=== PATIENT | female | born 1955 | race American Indian/Alaskan Native ===

== ENCOUNTER 2017-09-10 06:09 | Emergency (ER) | payer SELFPAY ==
[2017-09-10] MEDS ORDERED: AUGMENTIN 875 MG PO ONE (11:16)
[2017-09-10] MEDS ORDERED: DELTASONE PO ONE (11:16)
--- NOTE | 2017-09-10 11:17 | Emergency Department Report ---
HPI - General Chief Complaint: Earache Time Seen by Provider: 09/10/17 09:10 - HPI HPI: This is a 61-year-old female in no higher medical history who presents to ED complaining of runny nose, coughing, sneezing, throat pain and ear pain for the past 3 weeks. Patient states she's felt like she is on a cold for 3 weeks. Patient states she went to [facility] 5 days ago and was not given any medication to follow-up if symptoms worsen. Patient states symptoms have not gone away and gotten a bit worse. Patient describes soreness to the left ear and neck region. She describes it as throbbing and aching pain. She denies fever/chills/nausea/vomiting/abdominal complaints this chest pain/ shortness of breath. ED Past Medical Hx - Past Medical History Previous Medical History?: Yes Hx Hypertension: Yes Additional medical history: Hypothryoid, MVP - Surgical History Past Surgical History?: Yes Additional Surgical History: Hysterectomy - Social History Smoking Status: Never Smoker Substance Use Type: None - Medications Home Medications: Home Medications Medication Instructions Recorded Confirmed Last Taken Type Diazepam Tab [Valium] 2 mg PO TID PRN #30 tablet 09/28/15 Unknown Rx Oxycodone HCl/Acetaminophen 1 each PO Q6HR PRN #30 tablet 09/28/15 Unknown Rx [Percocet 10/325 mg] Amoxicillin [Trimox CAP] 500 mg PO Q8H #30 capsule 12/15/15 Unknown Rx Fluconazole [Diflucan TAB] 150 mg PO ONCE #1 tablet 12/15/15 Unknown Rx Fluticasone [Flonase] 1 spray NS QDAY #1 bottle 12/15/15 Unknown Rx Prednisone [predniSONE 5 mg (6-Day 5 mg PO .TAPER #1 tab.ds.pk 12/15/15 Unknown Rx Pack, 21 Tabs)] Diazepam Tab [Valium] 5 mg PO BID PRN #8 tablet 09/30/16 Unknown Rx Amoxicillin/K Clav Tab [Augmentin 1 each PO BID #20 tablet 09/10/17 Unknown Rx 875MG TAB] Ibuprofen [Motrin 600 MG tab] 600 mg PO Q8H PRN #20 tablet 09/10/17 Unknown Rx predniSONE [Deltasone] 20 mg PO DAILY #3 tablet 09/10/17 Unknown Rx ED Review of Systems ROS: Stated complaint: FLU SYPMTOMS Other details as noted in HPI Constitutional: denies: chills, fever Eyes: denies: eye pain, eye discharge, vision change ENT: throat pain. denies: ear pain, dental pain, congestion Respiratory: cough. denies: shortness of breath, wheezing Cardiovascular: denies: chest pain, palpitations Endocrine: no symptoms reported Gastrointestinal: denies: abdominal pain, nausea, diarrhea Genitourinary: denies: urgency, dysuria, frequency, hematuria, discharge Musculoskeletal: denies: back pain, joint swelling, arthralgia Skin: denies: rash, lesions, pruritus Neurological: denies: headache, weakness, numbness, paresthesias Psychiatric: denies: anxiety, depression Hematological/Lymphatic: denies: easy bleeding, easy bruising Physical Exam - Physical Exam Vital Signs: Vital Signs 09/10/17 07:14 Temperature 97.7 F Pulse Rate 65 Blood Pressure 135/92 O2 Sat by Pulse 65 L Oximetry Physical Exam: GENERAL: Alert and oriented x3, no apparent distress, Normal Gait, atraumatic. HEAD: Head is normocephalic and a-traumatic. EYES: Extra ocular muscles are intact. Pupils are equal, round, and reactive to light and accommodation. EARS: symetrical, atraumatic, non tender, ear canal clear and moderate cerumen, tympanic membrance non inflamed but had some yellowish fluid behind tympanic membranes bilaterally. gross auditory nml bilaterally. NOSE: Nose symetrical, Nontender,Nares appeared normal. maxillary sinus tenderness MOUTH:Mouth is well hydrated and without lesions. Tonsils nonerythematous or swollen, Uvula midline, Tongue not elevated. Mucous membranes are moist. Posterior pharynx clear, no exudate or lesions. Patent airways. NECK: Supple. Non edematous, There is anterior cervical lymphadenopathy, LUNGS: Symetrical with respiration, No wheezing, no rales or crackles, CTAB. HEART: S1, S2 present, regular rate and rhythm without murmur, no rubs, no gallops. Non tender to palpation SKIN: Warm and dry, No lesions, No ulceration or induration present. ED Course Vital Signs 09/10/17 07:14 Temperature 97.7 F Pulse Rate 65 Blood Pressure 135/92 O2 Sat by Pulse 65 L Oximetry ED Medical Decision Making - Radiology Data 61-year-old female present with URI with sinusitis ED course: Patient received medication while in ED. Rapid strep test ordered, abruptly strep negative I discussed this findings with the patient. I discussed the patient take antibiotics as prescribed. I discussed the patient to follow up with primary care physician in 3-5 days. Vital signs normalized patient is in no acute distress I discussed the patient is symptoms worsen or new symptoms develop to return to ED immediately. Critical care attestation.: If time is entered above; I have spent that time in minutes in the direct care of this critically ill patient, excluding procedure time. ED Disposition Clinical Impression: Sinusitis Qualifiers: Sinusitis location: maxillary Chronicity: acute Recurrence: non-recurrent Qualified Code(s): J01.00 - Acute maxillary sinusitis, unspecified Disposition: TO HOME OR SELFCARE Is pt being admited?: No Does the pt Need Aspirin: No Condition: Stable Instructions: Sinusitis (ED), Acute Bacterial Rhinosinusitis (ED) Additional Instructions: Make sure to follow up with the primary care physician as discussed. Take all your medications as you've been prescribed. If you have any worsening symptoms or develop new symptoms please return to ED immediately. Prescriptions: Amoxicillin/K Clav Tab [Augmentin 875MG TAB] 1 each PO BID #20 tablet Ibuprofen [Motrin 600 MG tab] 600 mg PO Q8H PRN #20 tablet PRN Reason: Pain predniSONE [Deltasone] 20 mg PO DAILY #3 tablet Referrals: PRIMARY CARE, [Primary Care Provider] - 3-5 Days [facility] [Outside] - 3-5 Days [facility] [Outside] - 3-5 Days [facility] [Outside] - 3-5 Days Forms: Work/School Release Form(ED) Time of Disposition: 12:26
[2017-09-10 12:46] VITALS: BP 166/118
== END 2017-09-10 12:43 | disposition home or self-care (01) ==
LOC: ED 06:09
DX: J32.0 Chronic maxillary sinusitis (principal); I10 Essential (primary) hypertension; E03.9 Hypothyroidism, unspecified
CPT/HCPCS: 87116; 87430; 99282; J7512

== ENCOUNTER 2021-03-13 13:56 | Outpatient (CLI) | payer MEDICARE ==
--- NOTE | 2021-03-13 18:26 | Magnetic Resonance Report ---
MR lumbar spine wo con INDICATION / CLINICAL INFORMATION: 65 years Female; LOW BACK PAIN. TECHNIQUE: Multisequence, multiplanar images of the lumbar spine were obtained. COMPARISON: None available. FINDINGS: ALIGNMENT: There is no significant spondylolisthesis or scoliosis of the lumbar spine. VERTEBRAE:There is mild degenerative endplate edema on the left at L4-5. Mild chronic endplate change s are noted at L5-S1. VISUALIZED SPINAL CORD: No significant abnormality. [id number] ANALYSIS: L1-2: No significant abnormality. L2-3: No significant abnormality. L3-4: No significant abnormality. L4-5: The broad-based disc bulge and facet joint hypertrophy result in mild spinal stenosis. There is small left facet joint effusion. There is mild neural foraminal narrowing bilaterally. L5-S1: There is milder central disc bulge with small annular tear. There is no significant central sp inal stenosis at. There is mild neural foraminal narrowing bilaterally. PARASPINAL SOFT TISSUES: No significant abnormality. ADDITIONAL FINDINGS: No epidural collections are identified. IMPRESSION: 1. There is mild spinal stenosis and neural from narrowing bilaterally at L4-5. 2. There is also disc bulge and facet joint changes at L5-S1 with mild foraminal narrowing bilaterall y. Signer Name: Lennox Albrecht MD Signed: 03/13/2021 6:21 PM Workstation Name: [id number]
== END 2021-03-13 13:57 | disposition home or self-care (01) ==
LOC: MRI 13:56
PROVIDERS: ATTEND Orthopaedic Surgery
DX: M47.817 Spondylosis without myelopathy or radiculopathy, lumbosacral region (principal); M48.07 Spinal stenosis, lumbosacral region
CPT/HCPCS: 72148

== ENCOUNTER 2021-04-14 14:39 | Emergency (ER) | payer MEDICARE ==
[2021-04-14 16:33] VITALS: BP 145/96
--- NOTE | 2021-04-14 19:12 | Emergency Department Report ---
ED ENT HPI - General Chief complaint: Earache Stated complaint: RT EAR PAIN Time Seen by Provider: 04/14/21 18:20 Source: patient Mode of arrival: Ambulatory Limitations: No Limitations - History of Present Illness Initial comments: This is a 65-year-old female brought by mother nontoxic, well nourished in appearance, no acute signs of distress presents to the ED with c/o of right earache x several days. Patient stated that pain radiates to right sided throat area. Patient denies any ear drainage. Patient denies any trauma to the area. Patient denies any mastoid tenderness. Agrees to right tragus tenderness. Patient denies hearing decrease or hearing changes. Patient denies any fever, chills, nausea, vomiting, chest pain, short of breath, headache or stiff neck. MD complaint: ear pain -: days(s) Location: R ear Severity: mild Severity scale (0 -10): 3 Quality: aching Consistency: constant Improves with: none Worsens with: none Associated Symptoms: denies: fever, cough, gum swelling, toothache, pain with swallowing, sore throat, tinnitus, hearing loss, discharge from ear, rhinorrhea - Related Data Previous Rx's Medication Instructions Recorded Last Taken Type Oxycodone HCl/Acetaminophen 1 each PO Q6HR PRN #30 tablet 09/28/15 Unknown Rx [Percocet 10/325 mg] diazePAM TAB [Valium] 2 mg PO TID PRN #30 tablet 09/28/15 Unknown Rx Amoxicillin [Trimox CAP] 500 mg PO Q8H #30 capsule 12/15/15 Unknown Rx Fluconazole (Nf) [Diflucan TAB] 150 mg PO ONCE #1 tablet 12/15/15 Unknown Rx Fluticasone [Flonase] 1 spray NS QDAY #1 bottle 12/15/15 Unknown Rx Prednisone [predniSONE 5 mg (6-Day 5 mg PO .TAPER #1 tab.ds.pk 12/15/15 Unknown Rx Pack, 21 Tabs)] diazePAM TAB [Valium] 5 mg PO BID PRN #8 tablet 09/30/16 Unknown Rx Amoxicillin/K Clav Tab [Augmentin 1 each PO BID #20 tablet 09/10/17 Unknown Rx 875MG TAB] Ibuprofen [Motrin 600 MG tab] 600 mg PO Q8H PRN #20 tablet 09/10/17 Unknown Rx predniSONE [Deltasone] 20 mg PO DAILY #3 tablet 09/10/17 Unknown Rx Amoxicillin [Amoxicillin TAB] 875 mg PO BID #20 tablet 04/14/21 Unknown Rx Ciprofloxacin HCl/Dexameth 2 drop BID 7 Days #1 bottle 04/14/21 Unknown Rx [Ciprodex Otic Suspension] Allergies Allergy/AdvReac Type Severity Reaction Status Date / Time erythromycin base Allergy Itching Verified 09/10/17 07:13 hydroxyzine HCl [From Atarax] Allergy Rash Verified 09/10/17 07:13 latex Allergy Hives Verified 09/10/17 07:13 oxytocin [From Pitocin] Allergy Rash Verified 09/10/17 07:13 Sulfa (Sulfonamide Allergy Rash Verified 09/10/17 07:13 Antibiotics) pseudoephedrine AdvReac Unknown Verified 09/10/17 07:13 Nickel Allergy Rash Uncoded 09/30/16 09:39 ED Dental HPI - General Chief complaint: Earache Stated complaint: RT EAR PAIN Time Seen by Provider: 04/14/21 18:20 Source: patient Mode of arrival: Ambulatory Limitations: No Limitations - Related Data Previous Rx's Medication Instructions Recorded Last Taken Type Oxycodone HCl/Acetaminophen 1 each PO Q6HR PRN #30 tablet 09/28/15 Unknown Rx [Percocet 10/325 mg] diazePAM TAB [Valium] 2 mg PO TID PRN #30 tablet 09/28/15 Unknown Rx Amoxicillin [Trimox CAP] 500 mg PO Q8H #30 capsule 12/15/15 Unknown Rx Fluconazole (Nf) [Diflucan TAB] 150 mg PO ONCE #1 tablet 12/15/15 Unknown Rx Fluticasone [Flonase] 1 spray NS QDAY #1 bottle 12/15/15 Unknown Rx Prednisone [predniSONE 5 mg (6-Day 5 mg PO .TAPER #1 tab.ds.pk 12/15/15 Unknown Rx Pack, 21 Tabs)] diazePAM TAB [Valium] 5 mg PO BID PRN #8 tablet 09/30/16 Unknown Rx Amoxicillin/K Clav Tab [Augmentin 1 each PO BID #20 tablet 09/10/17 Unknown Rx 875MG TAB] Ibuprofen [Motrin 600 MG tab] 600 mg PO Q8H PRN #20 tablet 09/10/17 Unknown Rx predniSONE [Deltasone] 20 mg PO DAILY #3 tablet 09/10/17 Unknown Rx Amoxicillin [Amoxicillin TAB] 875 mg PO BID #20 tablet 04/14/21 Unknown Rx Ciprofloxacin HCl/Dexameth 2 drop BID 7 Days #1 bottle 04/14/21 Unknown Rx [Ciprodex Otic Suspension] Allergies Allergy/AdvReac Type Severity Reaction Status Date / Time erythromycin base Allergy Itching Verified 09/10/17 07:13 hydroxyzine HCl [From Atarax] Allergy Rash Verified 09/10/17 07:13 latex Allergy Hives Verified 09/10/17 07:13 oxytocin [From Pitocin] Allergy Rash Verified 09/10/17 07:13 Sulfa (Sulfonamide Allergy Rash Verified 09/10/17 07:13 Antibiotics) pseudoephedrine AdvReac Unknown Verified 09/10/17 07:13 Nickel Allergy Rash Uncoded 09/30/16 09:39 ED Review of Systems ROS: Stated complaint: RT EAR PAIN Other details as noted in HPI Comment: All other systems reviewed and negative Constitutional: denies: chills, fever Eyes: denies: eye pain, eye discharge, vision change ENT: ear pain. denies: throat pain Respiratory: denies: cough, shortness of breath, wheezing Cardiovascular: denies: chest pain, palpitations Endocrine: no symptoms reported Gastrointestinal: denies: abdominal pain, nausea, diarrhea Genitourinary: denies: urgency, dysuria, discharge Musculoskeletal: denies: back pain, joint swelling, arthralgia Skin: denies: rash, lesions Neurological: denies: headache, weakness, paresthesias Psychiatric: denies: anxiety, depression Hematological/Lymphatic: denies: easy bleeding, easy bruising ED Past Medical Hx - Past Medical History Previous Medical History?: Yes Hx Hypertension: Yes Additional medical history: Hypothryoid, MVP - Surgical History Additional Surgical History: Hysterectomy - Social History Smoking Status: Never Smoker - Medications Home Medications: Home Medications Medication Instructions Recorded Confirmed Last Taken Type Oxycodone HCl/Acetaminophen 1 each PO Q6HR PRN #30 tablet 09/28/15 Unknown Rx [Percocet 10/325 mg] diazePAM TAB [Valium] 2 mg PO TID PRN #30 tablet 09/28/15 Unknown Rx Amoxicillin [Trimox CAP] 500 mg PO Q8H #30 capsule 12/15/15 Unknown Rx Fluconazole (Nf) [Diflucan TAB] 150 mg PO ONCE #1 tablet 12/15/15 Unknown Rx Fluticasone [Flonase] 1 spray NS QDAY #1 bottle 12/15/15 Unknown Rx Prednisone [predniSONE 5 mg (6-Day 5 mg PO .TAPER #1 tab.ds.pk 12/15/15 Unknown Rx Pack, 21 Tabs)] diazePAM TAB [Valium] 5 mg PO BID PRN #8 tablet 09/30/16 Unknown Rx Amoxicillin/K Clav Tab [Augmentin 1 each PO BID #20 tablet 09/10/17 Unknown Rx 875MG TAB] Ibuprofen [Motrin 600 MG tab] 600 mg PO Q8H PRN #20 tablet 09/10/17 Unknown Rx predniSONE [Deltasone] 20 mg PO DAILY #3 tablet 09/10/17 Unknown Rx Amoxicillin [Amoxicillin TAB] 875 mg PO BID #20 tablet 04/14/21 Unknown Rx Ciprofloxacin HCl/Dexameth 2 drop BID 7 Days #1 bottle 04/14/21 Unknown Rx [Ciprodex Otic Suspension] ED Physical Exam - General Limitations: No Limitations General appearance: alert, in no apparent distress - Head Head exam: Present: atraumatic, normocephalic - Eye Eye exam: Present: normal appearance - Expanded ENT Exam Expanded Ear exam: Present: normal external inspection TM/Canal exam: Erythema: Right TM, Bulging: Right TM Mouth exam: Present: normal external inspection, tongue normal. Absent: drooling, trismus, muffled voice Teeth exam: Present: normal inspection Throat exam: Positive: normal inspection, other (uvula midline. no tonsillar abscess or swelling). Negative: tonsillar erythema, tonsillomegaly, tonsillar exudate, R peritonsillar mass, L peritonsillar mass - Neck Neck exam: Present: normal inspection, full ROM. Absent: tenderness, meningismus, lymphadenopathy - Respiratory Respiratory exam: Absent: respiratory distress - Cardiovascular Cardiovascular Exam: Present: regular rate - Extremities Exam Extremities exam: Present: full ROM - Back Exam Back exam: Present: full ROM - Neurological Exam Neurological exam: Present: alert, oriented X3, normal gait - Psychiatric Psychiatric exam: Present: normal affect, normal mood - Skin Skin exam: Present: warm, dry, intact, normal color. Absent: rash - Other Other exam information: Positive right tragus tenderness. no mastoid tenderness or redness. ED Course Vital Signs 04/14/21 16:32 Temperature 97.6 F Pulse Rate 75 Respiratory 18 Rate Blood Pressure 145/96 O2 Sat by Pulse 100 Oximetry - Reevaluation(s) Reevaluation #1: 04/14/21 19:12 Patient is speaking in full sentences with no signs of distress noted. ED Medical Decision Making - Medical Decision Making Patient be treated with amoxicillin and Ciprodex. Vital signs are stable. Patient was examined by me patient is stable. Patient was instructed to follow- up with a primary care doctor in 3-5 days or if symptoms worsen and continue return to emergency room as soon as possible. At time of discharge, the patient does not seem toxic or ill in appearance. No acute signs of distress noted. Patient agrees to discharge treatment plan of care. No further questions noted by the patient. Critical care attestation.: If time is entered above; I have spent that time in minutes in the direct care of this critically ill patient, excluding procedure time. ED Disposition Clinical Impression: Otitis media Qualifiers: Otitis media type: unspecified Chronicity: acute Qualified Code(s): H66.90 - Otitis media, unspecified, unspecified ear Otitis externa Qualifiers: Otitis externa type: unspecified type Chronicity: acute Laterality: right Qualified Code(s): H60.501 - Unspecified acute noninfective otitis externa, right ear Disposition: - TO HOME OR SELFCARE Is pt being admited?: No Does the pt Need Aspirin: No Condition: Stable Instructions: Otitis Media, Adult, [id number], Otitis Externa, [id number] Additional Instructions: Follow-up with a primary care doctor in 3-5 days or if symptoms worsen and continue return to emergency room as soon as possible. Prescriptions: Amoxicillin [Amoxicillin TAB] 875 mg PO BID #20 tablet Ciprofloxacin HCl/Dexameth [Ciprodex Otic Suspension] 2 drop BID 7 Days #1 bottle Referrals: PRIMARY MD SARAN [Referring] - 3-5 Days PARK DEE MD [Staff Physician] - 3-5 Days Forms: Work/School Release Form(ED) Time of Disposition: 19:15
== END 2021-04-14 19:30 | disposition home or self-care (01) ==
LOC: ED 14:39
DX: H66.91 Otitis media, unspecified, right ear (principal); H60.91 Unspecified otitis externa, right ear; I10 Essential (primary) hypertension; Z79.899 Other long term (current) drug therapy; Z90.710 Acquired absence of both cervix and uterus; Z91.040 Latex allergy status; Z91.048 Other nonmedicinal substance allergy status; Z88.1 Allergy status to other antibiotic agents; Z88.2 Allergy status to sulfonamides
CPT/HCPCS: 99282